=== PATIENT | male | born 1940 | race Caucasian/White ===

== ENCOUNTER 2016-11-08 18:50 | Inpatient (IN) | payer MEDICARE, OTHER ==
--- NOTE | ~2016-11-08 | EGD ---
EGD REPORT [facility] [address] [address] NAME: MEHRAN RAMON : 44 STATUS : ADM IN PAT#: [id number] AGE: 76 ADM/REG DATE : 11/08/16 MR#: [id number] REPORT SERV DATE: 11/10/16 DICTATED BY: TRE FRANZ DATE: 11/10/16 REPORT STATUS : Draft TRANSCRIBED BY: [facility] DATE: 11/10/16 [facility] Center Patient Name: Mehran Ramon Date of : 1940 Attending MD: TRE FRANZ MD Procedure Date No Time: 11/10/2016 Procedure: Colonoscopy Indications: Hematochezia Referring MD: TEVIN PATRICK MD Medicines: Monitored Anesthesia Care Complications: No immediate complications. Estimated blood loss: None. Procedure: Pre-Anesthesia Assessment: - ASA Grade Assessment: III - A patient with severe systemic disease. After I obtained informed consent, the scope was passed under direct vision. Throughout the procedure, the patient's blood pressure, pulse, and oxygen saturations were monitored continuously. The CF [id number] [id number] was introduced through the anus and advanced to the cecum, identified by appendiceal orifice and ileocecal valve. The colonoscopy was performed without difficulty. The patient tolerated the procedure well. The quality of the bowel preparation was poor. Findings: The perianal and digital rectal examinations were normal. Pertinent negatives include no palpable rectal lesions. Diffuse melanosis was found in the entire colon. Multiple medium-mouthed diverticula were found in the sigmoid colon. Non-bleeding internal hemorrhoids were found during retroflexion and were small. The exam was otherwise without abnormality. Impression: - Preparation of the colon was poor. - Melanosis in the colon. - Diverticulosis in the sigmoid colon. - Non-bleeding internal hemorrhoids. - The examination was otherwise normal. Recommendation: - Return patient to hospital worthy until patient is stable. - Full liquid diet. - Use fiber, for example Citrucel, Fibercon, Konsyl or Metamucil. EGD REPORT [address] [address] NAME: MEHRAN RAMON : 44 STATUS : ADM IN [facility]#: [id number] AGE: 76 ADM/REG DATE : 11/08/16 MR#: [id number] REPORT SERV DATE: 11/10/16 DICTATED BY: TRE FRANZ DATE: 11/10/16 REPORT STATUS : Draft TRANSCRIBED BY: [employer] DATE: 11/10/16 Procedure Code(s): --- Professional --- 50135, Colonoscopy, flexible, proximal to splenic flexure; diagnostic, with or without collection of specimen(s) by brushing or washing, with or without colon decompression (separate procedure) Diagnosis Code(s): --- Professional --- K64.8, Other hemorrhoids K57.30, Diverticulosis of large intestine without perforation or abscess without bleeding K63.89, Other specified diseases of intestine K92.1, Melena CPT copyright 2013 [employer]. All rights reserved. The codes documented in this report are preliminary and upon clerk secretary review may be revised to meet current compliance requirements. Tre Franz MD TRE FRANZ MD 11/10/2016 10:43 AM This report has been signed electronically. Number of Addenda: 0 Note Initiated On: 11/10/2016 10:09 AM Scope Withdrawal Time 0 hours 9 minutes 14 seconds [address] [place] [address]
--- NOTE | ~2016-11-08 | CN ---
Consultation Report [facility] [address] [place]. [address] NAME: EFRAIN RAOMN : 44 STATUS : ADM IN PAT#: [id number] AGE: 76 ADM/REG DATE : 11/08/16 MR#: [id number] REPORT SERV DATE: 11/09/16 DICTATED BY: GALLITO VALADEZ DATE: 11/09/16 REPORT STATUS : Draft TRANSCRIBED BY: MODCassandra DATE: 11/09/16 GI CONSULTATION DATE OF CONSULTATION: 11/09/2016 REASON FOR CONSULTATION: Evaluation and management of lower GI bleeding. HISTORY OF PRESENT ILLNESS: Mr. Ramon is a 76-year-old male patient, known to Dr. Juvencio Parsons, who presented on 11/08 with a chief complaint of lower GI bleeding. He gives symptom onset last Wednesday, passing bright red blood per rectum. He has a history of lower GI bleed in 11/2015 secondary to felt diverticular in nature. It was very large volume at that time. He was transfused blood products and subsequently was discharged. He has a history of atrial fibrillation, on chronic Coumadin therapy. He states that when his bleeding began last Wednesday, he stopped his Coumadin and did not take it on Wednesday, , Wednesday. Bleeding starting to get better, he started his Coumadin back on Wednesday night. However, on Wednesday, he experienced some mid back discomfort as well as extreme weakness. He passed a stool on Wednesday which he states had some intermixed bright red blood, his was concerned, thus bringing him into the hospital for further evaluation. Hemoglobin on admission 10, presently 9.1. He denies any melena. He denies any constipation or diarrhea. He has had some recent mid back discomfort. No nausea, no vomiting. No heartburn, no indigestion. No NSAID usage. I have discussed with the patient and the , who is present at the bedside, we will plan on colonoscopy tomorrow with Dr. Quezada. Risks, benefits, alternatives, and complications were detailed for them to include, but not limited to the risk of bleeding, perforation, infection, reaction to medications as well as cardiac and pulmonary side effects. He is agreeable to proceed. PAST MEDICAL HISTORY: Diverticular disease; colon polyps; atrial fibrillation, on Coumadin; hypothyroidism; hypertension. PAST SURGICAL HISTORY: Cardiac ablation. SOCIAL HISTORY: . [employer] at [employer] part-time. No alcohol, tobacco, or illicits. FAMILY HISTORY: Negative from a GI standpoint. ALLERGIES: NO KNOWN ALLERGIES. HOME MEDICATIONS: Tylenol, Norvasc, Lipitor, vitamin B complex, Zyrtec, levothyroxine, Hyzaar, multivitamin, Coumadin, Aldactone, Flomax, and eye drops. REVIEW OF SYSTEMS: A 10-point review of systems has been obtained with pertinent positives being addressed in the history of present illness. Consultation Report [place] [id number] [place]. [address] NAME: EFRAIN RAMON : 44 STATUS : ADM IN [facility]#: [id number] AGE: 76 ADM/REG DATE : 11/08/16 MR#: [id number] REPORT SERV DATE: 11/09/16 DICTATED BY: GALLITO VALADEZ DATE: 11/09/16 REPORT STATUS : Draft TRANSCRIBED BY: LUIS DATE: 11/09/16 PERTINENT LABORATORY DATA: Sodium 143, potassium 4.3, BUN is 29, creatinine 1.7. White count 7.5, hemoglobin 9.1, hematocrit 28, platelet count 258. INR is 1.4. PHYSICAL EXAMINATION: VITAL SIGNS: Temperature is 97.2, pulse 65, respirations 24, and blood pressure 109/60. NEURO: Reveals an alert, obese male, sitting up in the chair with no focal deficits. He is oriented x3. GENERAL: Cooperative, in no obvious distress. HEAD, EARS, EYES, NOSE, AND THROAT: Anicteric. Pupils equal, round, reactive to light and accommodation. Normocephalic and atraumatic. NECK: No JVD. No palpable nodes. LUNGS: Clear anteriorly with normal respiratory effort exhibited. Equal expansion. CARDIOVASCULAR SYSTEM: Regular rate and rhythm. ABDOMEN: Soft, obese, nontender. No rebound or guarding elicited on exam. EXTREMITIES: No edema. Normal distal pulses. SKIN: Warm, dry, and intact. ASSESSMENT: 1. Lower GI bleeding, most likely diverticular in nature. 2. Acute blood loss anemia. 3. Chronic atrial fibrillation, on Coumadin, last dose Wednesday night. 4. Obesity. PLAN: 1. Clear liquid diet and n.p.o. after midnight. 2. Bowel prep. 3. Colonoscopy in the morning. 4. Other recommendations to follow. THOMAS/LUIS GILMER Hernandez / [id number] CC: Virgil Chan M.D.
--- NOTE | ~2016-11-08 | HP ---
History And Physical [place] [id number] [place]. [address] NAME: EFRAIN RAMON : 44 STATUS : ADM IN [facility]#: [id number] AGE: 76 ADM/REG DATE : 11/08/16 MR#: [id number] REPORT SERV DATE: 11/09/16 DICTATED BY: TEVIN BLANCO DATE: 11/08/16 REPORT STATUS : Draft TRANSCRIBED BY: MODL DATE: 11/08/16 DATE OF ADMISSION: 11/08/2016 IDENTIFYING DATA: A 76-year-old white male, whose PCP is Dr. Tevin Brady; GI, Dr. Shante Parsons; Cardiology, Dr. Morales; vehicle monitor technician, Dr. Bell. CHIEF COMPLAINT: Chest pain, weakness, and rectal bleeding. HISTORY OF PRESENT ILLNESS: This patient's history of present illness was obtained by talking directly with the patient as well as his as well as with ER physician, Dr. Dayana Chaudhry, as well as reviewing [employer] and [employer]. This patient was here on 12/25/2015 through 12/27/2015 with lower GI bleeding and diverticula were found along with melanosis coli and a large polyp in his ascending colon. He, at that time, was given fresh frozen plasma. His warfarin was held while he was in the hospital, but his warfarin was restarted at the time of discharge. He was brought back to the hospital as an outpatient on 02/19/2016 for colonoscopy with multiple polyps removed, hemostatic clips were placed in several places. He was found to have tubular adenoma without high-grade dysplasia and sessile serrated adenoma. No malignancy. Last Wednesday prior to this current admission, he noticed bright red blood per rectum when he went to the bathroom. He states it was "gushing out." He also quit taking his warfarin on Wednesday, , and Wednesday, did not notice bleeding again, so last night took a dose again. This morning when he was cooking breakfast, he fell weak; he had some pain in between his scapula, intermittent, lasting up to hours, also radiated to his neck; he sat in a chair, felt a little better; at noon, he went to the bathroom, had some bright red blood again, came to the emergency room because of this. He states he has been using over-the- counter Tylenol. He denies any use of eeac-udm-vckiune Advil, Aleve, ibuprofen, naproxen, Goody, Stanback, BCs. REVIEW OF SYSTEMS: On review of systems, he has a slight cough, vague shortness of breath yesterday with walking. He has chronic three-time per night nocturia. He does not wear home oxygen. He denies fever, abdominal pain, nausea, vomiting, dysuria, urinary hesitancy, falls, peripheral edema, rash, tick bites, headaches, anorexia, or significant weight change. He states he had a little bit of diarrhea on prior to this presentation. ALLERGIES: NO KNOWN DRUG ALLERGIES. PAST MEDICAL HISTORY: He denies any history of diabetes, asthma, COPD, stroke, seizure, peptic ulcer or biliary tract disease, liver disease, kidney stones, or cancer. Historically, he has had chronic atrial fibrillation. He has had ablations x3, but had not converted to sinus rhythm long-term; therefore, he is on anticoagulation. He has hypertension; chronic kidney disease, stage III. He has hypothyroidism. He has obstructive sleep apnea, wears CPAP, but does not wear home oxygen. He has obesity. He was here for History And Physical [address] [address] NAME: EFRAIN RAMON : 44 STATUS : ADM IN [facility]#: [id number] AGE: 76 ADM/REG DATE : 11/08/16 MR#: [id number] REPORT SERV DATE: 11/09/16 DICTATED BY: TEVIN LBANCO DATE: 11/08/16 REPORT STATUS : Draft TRANSCRIBED BY: LUIS DATE: 11/08/16 stress test and for chest pain in 02/08/2016, negative cardiac enzymes, and his nuclear stress test showed no ischemia and ejection fraction greater than 60%. HOME MEDICATIONS: Tylenol p.r.n., Norvasc 10 mg daily, Lipitor 10 mg at bedtime, Super B- Complex once a day, Zyrtec 10 mg daily p.r.n. allergies, levothyroxine 125 mcg daily (his last TSH that I could find was 3.51 on 07/13/2016), Hyzaar one tablet daily, multivitamin once per day, spironolactone 25 mg daily, Flomax 0.4 mg at bedtime, brimonidine 0.2% one drop each eye t.i.d., and Coumadin 3 mg at bedtime that was restarted last night. PAST SURGICAL HISTORY: He has had repair of left rotator cuff, back surgery, and tonsillectomy. SOCIAL HISTORY: He quit smoking cigarettes 16 years ago, he used to smoke a pack and a half. Alcohol intake is just occasional wine. He is retired from sales. He is . He walks without any assistive device. FAMILY HISTORY: Mother had uterine cancer, stroke, "tumor in the brain." Dad had congestive heart failure and in his 80s. Siblings with prostate cancer. DIAGNOSTIC DATA: Portable chest x-ray reveals mild cardiomegaly, some chronic scarring in the lower lung bases per my interpretation. EKG done today at 1328 hours reveals atrial fibrillation with occasional PVC. He has low voltage. His EKG, otherwise, unremarkable and looks very similar to his EKG of 02/08/2016 per my interpretation. Sodium 141, potassium 4.9, chloride 106, CO2 is 26, BUN is 31, creatinine 1.88 (by comparison, his creatinine was 1.37 on 07/13/2016), glucose 86, calcium 8.6, and magnesium 1.8. Troponin less than 0.02. His white count is 9.7; hemoglobin is 10, by comparison, it was 14.2 on 07/13/2016; today's platelets 266,000. Pro-time is 17.1, INR 1.4, and PTT is 31.1. His last hemoglobin A1c that I have accessed to was back in 07/04/2012, but I am sure his PCP has been following that, we just do not that in our records here. PHYSICAL EXAMINATION: VITAL SIGNS: Temp is 98, pulse 70, respirations 18, blood pressure 120/70, and O2 saturation is 99% on room air. GENERAL: A well-developed, older male, who appears in no acute distress. HEENT: Head is atraumatic. Pupils are equal, round, and reactive to light. Extraocular motions are intact. No scleral icterus noted. Ear canals and TMs are unremarkable with normal hearing bilaterally, and no inflammatory changes noted at the external ears. Nose, noninflamed externally. Septum midline. Nares patent. Mouth, moist. Good gag. No redness of the throat, gums, or lips. NECK: Supple. No lymph node or thyroid enlargement. The carotids have good pulses. No bruits. LUNGS: Clear. Good air flow. No wheezes. No rhonchi. Normal respiratory effort. HEART: Irregularly irregular without murmur, gallop, click, or rub. ABDOMEN: Obese. Bowel sounds positive. Soft, nondistended, and nontender except minimally in the left lower quadrant. No mass. No rebound. No bruits. No organomegaly noted. EXTREMITIES: Warm and good pulses. No clubbing. No cyanosis. No edema. No actively inflamed skin or joints. History And Physical [address] [address] NAME: EFRAIN RAMON : 44 STATUS : ADM IN [facility]#: [id number] AGE: 76 ADM/REG DATE : 11/08/16 MR#: [id number] REPORT SERV DATE: 11/09/16 DICTATED BY: TEVIN BLANCO DATE: 11/08/16 REPORT STATUS : Draft TRANSCRIBED BY: LUIS DATE: 11/08/16 NEUROLOGIC: He is alert, oriented, and cooperative with grossly normal mentation and speech as well as motor and cranial nerves II through XII. No Babinski. No clonus noted. ASSESSMENT: 1. Recurrent lower gastrointestinal bleed with past diverticular bleed less than a year ago. I doubt this is bleeding from polyps because they were removed in January 2016, this is most likely recurrent diverticular bleed in a gentleman who is on Coumadin. 2. Acute blood loss anemia. 3. Chronic atrial fibrillation with three previous ablations and a [id number] score of 2.0 based on his age and his gender and hypertension. 4. History of colon polyps, that were benign tubular adenomas without high-grade dysplasia and serrated sessile adenomas. 5. Hypertension. 6. Obesity with obstructive sleep apnea on nocturnal CPAP. 7. Atypical chest pain. 8. Acute kidney injury, possibly due to blood loss in a gentleman who is on Hyzaar at that time. PLAN: The patient is being admitted to a telemetry unit. We are going to hold his warfarin and follow up his pro-time and hemoglobin. We will ask his GI to see him. We will follow up the hemoglobin. We will check series of cardiac enzymes. We are going to hold his Norvasc since his systolic currently is about 115 to 120. We are going to hold his Hyzaar with his acute kidney injury. His is updated at the bedside at this time. They did bring his CPAP unit. RSG/MODL Tevin Blanco M.D. / [id number] CC: Virgil Chan M.D. Vinay Deep Madan, MD Vijaykurmar Patel, M.D. Timothy Talbert, M.D.
--- NOTE | ~2016-11-08 | DS ---
Discharge Summary [facility] [address] [place]. [address] NAME: EFRAIN RAMON : 44 STATUS : DIS IN PAT#: [id number] AGE: 76 ADM/REG DATE : 11/08/16 MR#: [id number] REPORT SERV DATE: 11/11/16 DICTATED BY: ROSALIA BURNHAM DATE: 11/10/16 REPORT STATUS : Draft TRANSCRIBED BY: MODL DATE: 11/10/16 ADMISSION DATE: 11/08/2016 DISCHARGE DATE: 11/10/2016 PRINCIPAL DIAGNOSIS: Lower gastrointestinal bleed due to hemorrhoids exacerbated by Coumadin anticoagulation versus atrial fibrillation. SECONDARY DIAGNOSES: 1. Acute blood loss anemia. 2. Mild acute kidney injury due to hypovolemia. HISTORY OF PRESENT ILLNESS: Please see Dr. Blanco's dictation on 11/08/2016. HOSPITAL COURSE: Admitted with rectal bleeding recurrent due to previous hospitalization less than a year ago for the same with blood loss anemia. Hematocrit had dropped to 27, but stabilized off warfarin anticoagulation. Colonoscopy revealed internal hemorrhoids, no other site of bleeding. The patient has had a history of hypertension, but blood pressure was actually normal to the low side off his amlodipine or his Cozaar, and it is felt without hypertension his CHADS-2 score would only be 1, and that he may consider baby aspirin as opposed to warfarin for his anticoagulation stroke prophylaxis. The patient was willing to consider this, but did not want to make any changes at this time. So after his diet was advanced he was able to be released home on 11/10/[address] Morales as scheduled and Dr. Festus Brady in one to two weeks. He will in fact continue his warfarin, but taken off his antihypertensives. Other medicines were unchanged. Greater than 30 minutes were spent on the care of this patient on discharge day. TRICE/LUIS Rosalia Burnham M.D. / [id number] CC: Virgil Hopper M.D. Vinay Deep Madan, MD
[2016-11-08 14:57] LABS: BASOPHILS 0.1 %; BASOPHILS ABSOLUTE 0.01 10/3/uL (0.0-0.16); EOSINOPHILS 0.8 %; EOSINOPHILS ABSOLUTE 0.08 10/3/uL (0.0-0.53); IMMATURE GRANULOCYTES 0.3 %; IMMATURE GRANULOCYTES ABSOLUTE 0.03 10/3/uL (0.0-0.11); LYMPHOCYTES 18.9 %; LYMPHOCYTES ABSOLUTE 1.84 10/3/uL (0.67-4.30); MEAN CORPUS HGB CONC 32.7 g/dL (32.0-36.0); MEAN CORPUSCULAR HEMOGLOB 28.7 pg (26.0-34.0); MEAN PLATELET VOLUME 9.9 fL (9.2-13.0); MONOCYTES 6.5 %; MONOCYTES ABSOLUTE 0.63 10/3/uL (0.21-1.20); NEUTROPHILS 73.4 %; NEUTROPHILS ABSOLUTE 7.14 10/3/uL (2.02-8.40); PLATELET COUNT 266 10/3/uL (150-400); RBC DISTRIBUTION WIDTH 16.4 % (12.0-16.0)
[2016-11-08 14:59] LABS: HEMATOCRIT 30.6 % (40.0-51.0); MANUAL DIFF NO %; MEAN CORPUSCULAR VOLUME 87.9 fL (80-100); RED CELL COUNT 3.48 10/6/uL (4.7-6.1); WHITE BLOOD CELLS 9.7 10/3/uL (4.5-10.5)
[2016-11-08 15:10] LABS: INTERNATIONAL NORMAL RATI 1.4 UNITS (-); PARTIAL THROMBO TIME 31.1 SEC (22.5-37.2)
[2016-11-08 15:13] LABS: CALCIUM, SERUM 8.6 MG/DL (8.5-10.4); CHEST PAIN PROFILE TAT 0 Hrs 20 Mins; CHLORIDE, SERUM 106 MMOL/L (96-112); GFR AFRICAN AMERICAN 40 ML/MIN (>=60); GFR NON AFRICAN AMERICAN 34 ML/MIN (>=60); GLUCOSE, SERUM 86 MG/DL (60-99); PROTIME (NOT ORD) 17.1 SEC (12.0-14.5); SODIUM, SERUM 141 MMOL/L (135-148); TROPONIN I <0.02 NG/ML (<0.05)
[2016-11-08 15:14] LABS: BUN (BLOOD UREA NITROGEN) 31 MG/DL (6-23); CO2 (CARBON DIOXIDE) 26 MMOL/L (24-34); CREATININE 1.88 MG/DL (0.70-1.30); POTASSIUM, SERUM 4.9 MMOL/L (3.5-5.3)
[~2016-11-08 18:50] MED LIST: BRIMONIDINE0.2 % OPH; CENTRUM PO; CITRUCELSF PO; COUMADIN3 MG PO; COUMADIN4 MG PO; FLOMAX4 PO; HYZAAR1 TAB PO; JANTOVEN3 MG PO; KLOR-CON M2020 MEQ PO; KLOR-CON20 MEQ PO; LEVOTHYROXIN100 MCG PO; LEVOTHYROXIN125 MCG PO; LIPITOR10 PO; LORTAB10 PO; MAGOX4 PO; NORV10 PO; OCUVITE PO; OTC EYE VITAMIN PO; SPIRO25 PO; ZYRTEC ALLGY10 MG PO
[2016-11-08] MEDS ORDERED: ZYRTEC ALLGY10 MG PO (18:51)
[2016-11-08] MEDS ORDERED: MULTIVIT/MIN PO (18:51)
[2016-11-08] MEDS ORDERED: COUMADIN3 MG PO (18:51)
[2016-11-08] MEDS ORDERED: FLOMAX4 PO (18:54)
[2016-11-08] MEDS ORDERED: NORV10 PO (18:54)
[2016-11-08] MEDS ORDERED: HYZAAR1 TAB PO (18:54)
[2016-11-08] MEDS ORDERED: ACET500CAP PO (18:55)
[2016-11-08] MEDS ORDERED: LEVOTHYROXIN125 MCG PO (18:55)
[2016-11-08] MEDS ORDERED: BRIMONIDINE 0.2% OPH (18:55)
[2016-11-08] MEDS ORDERED: SPIRO25 PO (18:55)
[2016-11-08] MEDS ORDERED: SUPER B COMP PO (18:56)
[2016-11-09 00:58] LABS: HEMATOCRIT 27.7 % (40.0-51.0)
[2016-11-09 06:59] LABS: BASOPHILS 0.1 %; BASOPHILS ABSOLUTE 0.01 10/3/uL (0.0-0.16); EOSINOPHILS 1.5 %; EOSINOPHILS ABSOLUTE 0.11 10/3/uL (0.0-0.53); HEMOGLOBIN 9.1 g/dL (13.6-17.8); IMMATURE GRANULOCYTES 0.3 %; IMMATURE GRANULOCYTES ABSOLUTE 0.02 10/3/uL (0.0-0.11); LYMPHOCYTES 24.6 %; LYMPHOCYTES ABSOLUTE 1.83 10/3/uL (0.67-4.30); MEAN CORPUS HGB CONC 32.5 g/dL (32.0-36.0); MEAN CORPUSCULAR HEMOGLOB 28.9 pg (26.0-34.0); MEAN CORPUSCULAR VOLUME 88.9 fL (80-100); MEAN PLATELET VOLUME 10.6 fL (9.2-13.0); MONOCYTES 5.6 %; MONOCYTES ABSOLUTE 0.42 10/3/uL (0.21-1.20); NEUTROPHILS 67.9 %; NEUTROPHILS ABSOLUTE 5.06 10/3/uL (2.02-8.40); PLATELET COUNT 258 10/3/uL (150-400); RBC DISTRIBUTION WIDTH 16.6 % (12.0-16.0); RED CELL COUNT 3.15 10/6/uL (4.7-6.1); WHITE BLOOD CELLS 7.5 10/3/uL (4.5-10.5)
[2016-11-09 07:04] LABS: MANUAL DIFF NO %
[2016-11-09 07:13] LABS: INTERNATIONAL NORMAL RATI 1.4 UNITS (-); PROTIME (NOT ORD) 17.2 SEC (12.0-14.5)
[2016-11-09 07:15] LABS: BUN (BLOOD UREA NITROGEN) 29 MG/DL (6-23); CALCIUM, SERUM 8.5 MG/DL (8.5-10.4); CHLORIDE, SERUM 109 MMOL/L (96-112); CO2 (CARBON DIOXIDE) 24 MMOL/L (24-34); GFR AFRICAN AMERICAN 45 ML/MIN (>=60); GFR NON AFRICAN AMERICAN 39 ML/MIN (>=60); POTASSIUM, SERUM 4.3 MMOL/L (3.5-5.3); SODIUM, SERUM 143 MMOL/L (135-148)
[2016-11-09 07:16] LABS: GLUCOSE, SERUM 111 MG/DL (60-99)
[2016-11-09 13:00] LABS: HEMATOCRIT 29.2 % (40.0-51.0); HEMOGLOBIN 9.4 g/dL (13.6-17.8)
[2016-11-09 18:22] LABS: HEMATOCRIT 31.9 % (40.0-51.0); HEMOGLOBIN 10.5 g/dL (13.6-17.8)
[2016-11-10 01:49] LABS: BASOPHILS 0.1 %; BASOPHILS ABSOLUTE 0.01 10/3/uL (0.0-0.16); EOSINOPHILS 1.7 %; EOSINOPHILS ABSOLUTE 0.14 10/3/uL (0.0-0.53); HEMOGLOBIN 8.8 g/dL (13.6-17.8); IMMATURE GRANULOCYTES 0.2 %; IMMATURE GRANULOCYTES ABSOLUTE 0.02 10/3/uL (0.0-0.11); LYMPHOCYTES 22.4 %; MEAN CORPUS HGB CONC 32.5 g/dL (32.0-36.0); MEAN CORPUSCULAR VOLUME 89.4 fL (80-100); MEAN PLATELET VOLUME 10.3 fL (9.2-13.0); MONOCYTES 6.7 %; MONOCYTES ABSOLUTE 0.54 10/3/uL (0.21-1.20); NEUTROPHILS 68.9 %; NEUTROPHILS ABSOLUTE 5.52 10/3/uL (2.02-8.40); PLATELET COUNT 257 10/3/uL (150-400); RBC DISTRIBUTION WIDTH 16.2 % (12.0-16.0); RED CELL COUNT 3.03 10/6/uL (4.7-6.1)
[2016-11-10 01:52] LABS: HEMATOCRIT 27.1 % (40.0-51.0)
[2016-11-10 01:53] LABS: MANUAL DIFF NO %
[2016-11-10 01:59] LABS: INTERNATIONAL NORMAL RATI 1.3 UNITS (-); PROTIME (NOT ORD) 16.5 SEC (12.0-14.5)
[2016-11-10 02:03] LABS: BUN (BLOOD UREA NITROGEN) 26 MG/DL (6-23); CALCIUM, SERUM 8.4 MG/DL (8.5-10.4); CHLORIDE, SERUM 108 MMOL/L (96-112); CO2 (CARBON DIOXIDE) 28 MMOL/L (24-34); CREATININE 1.55 MG/DL (0.70-1.30); GFR AFRICAN AMERICAN 50 ML/MIN (>=60); GFR NON AFRICAN AMERICAN 43 ML/MIN (>=60); GLUCOSE, SERUM 116 MG/DL (60-99); POTASSIUM, SERUM 4.4 MMOL/L (3.5-5.3); SODIUM, SERUM 143 MMOL/L (135-148)
[2016-11-10] MEDS ORDERED: METAMUCIL CAN7 OZ PO (16:05)
== END 2016-11-10 17:03 | disposition home or self-care (01) | DRG 394 ==
LOC: ER 18:50 → 6NO 19:26
PROVIDERS: Emergency Medicine; Hospitalist; Internal Medicine; Internal Medicine Gastroenterology; Nurse Practitioner Family
PROC: 0DJD8ZZ Inspection of Lower Intestinal Tract, Via Natural or Artificial Opening Endoscopic (ICD-10-PCS; principal; 2016-11-10 10:19)
DX: K64.8 Other hemorrhoids (principal); D68.32 Hemorrhagic disorder due to extrinsic circulating anticoagulants; N17.9 Acute kidney failure, unspecified; D62 Acute posthemorrhagic anemia; E86.1 Hypovolemia; E66.9 Obesity, unspecified; E03.9 Hypothyroidism, unspecified; G47.33 Obstructive sleep apnea (adult) (pediatric); T45.515A Adverse effect of anticoagulants, initial encounter; K63.89 Other specified diseases of intestine; K57.30 Diverticulosis of large intestine without perforation or abscess without bleeding; Z86.010 Personal history of colon polyps; Z87.891 Personal history of nicotine dependence; I10 Essential (primary) hypertension; I49.3 Ventricular premature depolarization
CPT/HCPCS: 36415; 71010; 80048; 83735; 84484; 85014; 85018; 85025; 85610; 85730; 86850; 86900; 86901; 93005; 96374; 99285; A9270-GY; C9113